=== PATIENT | female | born 1965 | race Caucasian/White ===

== ENCOUNTER → 2019-09-06 13:20 | Outpatient (BNVA) | payer MEDICAID, SELFPAY | PROVIDERS: Family Provider Family Medicine; PCP Family Medicine; Visit Provider Nurse Practitioner | DX: G89.4 Chronic pain syndrome (principal); M79.7 Fibromyalgia; M25.561 Pain in right knee; M25.562 Pain in left knee; G43.909 Migraine, unspecified, not intractable, without status migrainosus; F17.210 Nicotine dependence, cigarettes, uncomplicated; Z79.891 Long term (current) use of opiate analgesic | CPT/HCPCS: 99214 ==

== ENCOUNTER → 2019-09-22 10:35 | Outpatient (BNVA) | payer MEDICAID, SELFPAY | PROVIDERS: Family Provider Family Medicine; PCP Family Medicine; Visit Provider Nurse Practitioner Psychiatric/Mental Health | DX: F41.1 Generalized anxiety disorder (principal); F17.210 Nicotine dependence, cigarettes, uncomplicated; F31.13 Bipolar disorder, current episode manic without psychotic features, severe | CPT/HCPCS: 99213 ==

== ENCOUNTER → 2019-11-03 13:19 | Outpatient (BNVA) | payer MEDICAID, SELFPAY | PROVIDERS: Family Provider Family Medicine; PCP Family Medicine; Visit Provider Anesthesiology | DX: G89.4 Chronic pain syndrome (principal); M25.561 Pain in right knee; M25.562 Pain in left knee; M51.36 Other intervertebral disc degeneration, lumbar region; F17.210 Nicotine dependence, cigarettes, uncomplicated; Z79.891 Long term (current) use of opiate analgesic; Z71.6 Tobacco abuse counseling | CPT/HCPCS: 99214 ==

== ENCOUNTER → 2019-12-19 13:59 | Outpatient (BNVA) | payer MEDICAID, SELFPAY | PROVIDERS: Family Provider Family Medicine; PCP Family Medicine; Visit Provider Nurse Practitioner | DX: G89.4 Chronic pain syndrome (principal); M79.7 Fibromyalgia; M25.561 Pain in right knee; G43.909 Migraine, unspecified, not intractable, without status migrainosus; F17.210 Nicotine dependence, cigarettes, uncomplicated; Z79.891 Long term (current) use of opiate analgesic; Z71.6 Tobacco abuse counseling | CPT/HCPCS: 99213 ==

== ENCOUNTER → 2020-01-16 08:01 | Outpatient (BNVA) | payer MEDICAID, SELFPAY | PROVIDERS: Family Provider Family Medicine; PCP Family Medicine; Visit Provider Nurse Practitioner Psychiatric/Mental Health | DX: F31.13 Bipolar disorder, current episode manic without psychotic features, severe (principal); F41.1 Generalized anxiety disorder; F17.210 Nicotine dependence, cigarettes, uncomplicated | CPT/HCPCS: 99213 ==

== ENCOUNTER → 2020-02-14 12:47 | Outpatient (BNVA) | payer MEDICAID, SELFPAY | PROVIDERS: Family Provider Family Medicine; PCP Family Medicine; Visit Provider Nurse Practitioner | DX: G89.4 Chronic pain syndrome (principal); M79.7 Fibromyalgia; M25.561 Pain in right knee; M51.36 Other intervertebral disc degeneration, lumbar region; F17.210 Nicotine dependence, cigarettes, uncomplicated; Z79.891 Long term (current) use of opiate analgesic; Z71.6 Tobacco abuse counseling | CPT/HCPCS: 99213; 99214 ==

== ENCOUNTER → 2020-04-09 08:05 | Outpatient (BNVA) | payer MEDICAID, SELFPAY | PROVIDERS: Family Provider Family Medicine; PCP Family Medicine; Visit Provider Nurse Practitioner Psychiatric/Mental Health | DX: F31.13 Bipolar disorder, current episode manic without psychotic features, severe (principal); F41.1 Generalized anxiety disorder; F17.210 Nicotine dependence, cigarettes, uncomplicated | CPT/HCPCS: 99214 ==

== ENCOUNTER → 2020-05-07 07:48 | Outpatient (BNVA) | payer MEDICAID, SELFPAY | PROVIDERS: Family Provider Family Medicine; PCP Family Medicine; Visit Provider Nurse Practitioner Psychiatric/Mental Health | DX: F31.13 Bipolar disorder, current episode manic without psychotic features, severe (principal); F41.1 Generalized anxiety disorder; F17.210 Nicotine dependence, cigarettes, uncomplicated | CPT/HCPCS: 99213 ==

== ENCOUNTER → 2020-07-30 08:19 | Outpatient (BNVA) | payer MEDICAID, SELFPAY | PROVIDERS: Family Provider Family Medicine; PCP Family Medicine; Visit Provider Nurse Practitioner Psychiatric/Mental Health | DX: F31.13 Bipolar disorder, current episode manic without psychotic features, severe (principal); F41.1 Generalized anxiety disorder; F17.210 Nicotine dependence, cigarettes, uncomplicated | CPT/HCPCS: 99214 ==

== ENCOUNTER → 2020-09-10 08:27 | Outpatient (BNVA) | payer MEDICAID, SELFPAY | PROVIDERS: Family Provider Family Medicine; PCP Family Medicine; Visit Provider Nurse Practitioner Psychiatric/Mental Health | DX: F31.13 Bipolar disorder, current episode manic without psychotic features, severe (principal); F41.1 Generalized anxiety disorder; F17.210 Nicotine dependence, cigarettes, uncomplicated | CPT/HCPCS: 99214 ==

== ENCOUNTER → 2020-11-05 07:33 | Outpatient (BNVA) | payer MEDICAID, SELFPAY | PROVIDERS: Family Provider Family Medicine; PCP Family Medicine; Visit Provider Nurse Practitioner Psychiatric/Mental Health | DX: F31.13 Bipolar disorder, current episode manic without psychotic features, severe (principal); F41.1 Generalized anxiety disorder; F17.210 Nicotine dependence, cigarettes, uncomplicated | CPT/HCPCS: 99214 ==

== ENCOUNTER → 2021-01-23 07:35 | Outpatient (BNVA) | payer MEDICAID, SELFPAY | PROVIDERS: Family Provider Family Medicine; PCP Family Medicine; Visit Provider Nurse Practitioner Psychiatric/Mental Health | DX: F31.13 Bipolar disorder, current episode manic without psychotic features, severe (principal); F41.1 Generalized anxiety disorder; F17.210 Nicotine dependence, cigarettes, uncomplicated | CPT/HCPCS: 99214 ==

== ENCOUNTER → 2021-05-01 08:11 | Outpatient (BNVA) | payer MEDICAID, SELFPAY | PROVIDERS: Family Provider Family Medicine; PCP Family Medicine; Visit Provider Nurse Practitioner Psychiatric/Mental Health | DX: F31.13 Bipolar disorder, current episode manic without psychotic features, severe (principal); F41.1 Generalized anxiety disorder; F17.210 Nicotine dependence, cigarettes, uncomplicated | CPT/HCPCS: 99214 ==

== ENCOUNTER → 2021-05-08 11:11 | Outpatient (BNVA) | payer MEDICAID, SELFPAY | PROVIDERS: Family Provider Family Medicine; PCP Family Medicine; Visit Provider Nurse Practitioner Psychiatric/Mental Health | DX: Z79.899 Other long term (current) drug therapy (principal) | CPT/HCPCS: 80053 ==

== ENCOUNTER → 2021-07-24 08:17 | Outpatient (BNVA) | payer MEDICAID, SELFPAY | PROVIDERS: Family Provider Family Medicine; PCP Family Medicine; Visit Provider Nurse Practitioner Psychiatric/Mental Health | DX: F31.13 Bipolar disorder, current episode manic without psychotic features, severe (principal); F41.1 Generalized anxiety disorder; F17.210 Nicotine dependence, cigarettes, uncomplicated | CPT/HCPCS: 99214 ==

== ENCOUNTER → 2021-10-06 08:15 | Outpatient (BNVA) | payer MEDICAID, SELFPAY | PROVIDERS: Family Provider Family Medicine; PCP Family Medicine; Visit Provider Nurse Practitioner Psychiatric/Mental Health | DX: F41.1 Generalized anxiety disorder (principal); F17.210 Nicotine dependence, cigarettes, uncomplicated; F31.13 Bipolar disorder, current episode manic without psychotic features, severe; F90.9 Attention-deficit hyperactivity disorder, unspecified type; Z79.899 Other long term (current) drug therapy; Z03.89 Encounter for observation for other suspected diseases and conditions ruled out | CPT/HCPCS: 99214 ==

== ENCOUNTER → 2021-10-14 13:16 | Outpatient (BNVA) | payer MEDICAID, SELFPAY | PROVIDERS: Family Provider Family Medicine; PCP Family Medicine; Visit Provider Nurse Practitioner Psychiatric/Mental Health | DX: F31.13 Bipolar disorder, current episode manic without psychotic features, severe (principal); F41.1 Generalized anxiety disorder; F17.210 Nicotine dependence, cigarettes, uncomplicated; Z79.899 Other long term (current) drug therapy | CPT/HCPCS: 80053; 99214 ==

== ENCOUNTER → 2021-10-29 07:53 | Outpatient (BNVA) | payer MEDICAID, SELFPAY | PROVIDERS: Family Provider Family Medicine; PCP Family Medicine; Visit Provider Nurse Practitioner Psychiatric/Mental Health | DX: F31.13 Bipolar disorder, current episode manic without psychotic features, severe (principal); F41.1 Generalized anxiety disorder; F17.210 Nicotine dependence, cigarettes, uncomplicated | CPT/HCPCS: 99214 ==

== ENCOUNTER → 2021-12-22 07:02 | Outpatient (BNVA) | payer MEDICAID, SELFPAY | PROVIDERS: Family Provider Family Medicine; PCP Family Medicine; Visit Provider Nurse Practitioner Psychiatric/Mental Health | DX: F31.13 Bipolar disorder, current episode manic without psychotic features, severe (principal); F41.1 Generalized anxiety disorder; F17.210 Nicotine dependence, cigarettes, uncomplicated | CPT/HCPCS: 99214 ==

== ENCOUNTER → 2022-08-18 10:46 | Outpatient (BNVA) | payer MEDICAID, SELFPAY | PROVIDERS: Family Provider Family Medicine; PCP Family Medicine; Visit Provider Nurse Practitioner Psychiatric/Mental Health | DX: Z79.899 Other long term (current) drug therapy (principal); F31.13 Bipolar disorder, current episode manic without psychotic features, severe; F41.1 Generalized anxiety disorder; F17.210 Nicotine dependence, cigarettes, uncomplicated | CPT/HCPCS: 80053 ==

== ENCOUNTER 2023-05-11 10:44 | Outpatient (CLI) | payer MEDICAID, SELFPAY ==
--- NOTE | 2023-05-11 11:17 | MM_ITS ---
WS: [id number] BILATERAL 3D TOMOSYNTHESIS DIGITAL SCREENING MAMMOGRAPHY WITH CAD CLINICAL INFORMATION: Z12.39 - Encounter for other screening for malignant neop... HISTORY: Screening mammogram. No current complaints. COMPARISON: Baseline TECHNIQUE: Bilateral CC and MLO views. FINDINGS: Scattered fibroglandular densities bilaterally. No suspicious focal mass, asymmetry, calcifications, or architectural distortion. No evidence of malignancy. IMPRESSION: MM/[place] [id number] BI-RADS: 1-Negative FOLLOW UP: 1 Year Follow-up Recommend return to annual screening mammography.
== END 2023-05-11 10:45 | disposition home or self-care (01) ==
LOC: RAD 10:45
PROVIDERS: PCP Family Medicine; Visit Provider Family Medicine
DX: Z12.31 Encounter for screening mammogram for malignant neoplasm of breast (principal); Z79.899 Other long term (current) drug therapy
CPT/HCPCS: 77063; 77067; 80053; 80061; 82306; 83036; 85025

== ENCOUNTER → 2023-05-12 12:59 | Outpatient (BNVA) | payer MEDICAID, SELFPAY | PROVIDERS: PCP Family Medicine; Referring Provider Family Medicine; Visit Provider Surgery | DX: K59.00 Constipation, unspecified | CPT/HCPCS: 99203 ==

== ENCOUNTER 2023-05-19 05:54 | Day surgery (SDC) | payer MEDICAID, SELFPAY ==
[2023-05-19 06:13] VITALS: BP 139/104; PULSE 83; RESP 16; TEMP 36; O2SAT 98; BMI 32.8
[2023-05-19] MEDS: sodium chloride 0.9% 1,000 ML 30 ML IV (06:32)
--- NOTE | 2023-05-19 06:41 | P.ANESASSM_ITS ---
Pre-Anesthetic Assessment Height/Weight: Height 1.63 m Weight 86.636 kg Temp Pulse Resp BP Pulse Ox O2 Del Method 96.8 F L 83 16 139/104 98 Room Air 05/19/23 06:13 05/19/23 06:13 05/19/23 06:13 05/19/23 06:13 05/19/23 06:13 05/19/23 06:13 Preop Diagnosis: screening, constipation Operation Date: 05/19/23 07:00 Proposed Procedures p [id number] Colonoscopy G0121 Screen Colon A risk Z12.11(Not Applicable) - Kar Flores DO Familial anesthetic complications: none Was Beta Mikaela taken within 24 hours: N/A Was Clonidine taken within 24 hours: N/A Last intake: Intake Last Liquid Date 05/18/23 Last Liquid Time 21:00 Last Solid Date 05/17/23 Last Solid Time 17:00 Social No tobacco (quit 09/07) cannabis gummy 2 days prior, prn for sleep. Exam alert, oriented x 3 and clear to auscultation bilaterally Airway Submandibular: within normal limits Cervical ROM: within normal limits Mallampati: Class I Dentition: chipped Comments: Comments: very poor multiple missing and chipped Pulmonary None reported CV/HEM Hypertension None reported Hepatic None reported GI Gastroesophageal Reflux Disease Metabolic Hyperlipidemia and Morbid Obesity [facility] [place] Fibromyalgia and Lower Back Pain Neuropsych Anxiety, Bipolar and Depression Anesthetic Plan ASA status: 3 Anesthesia: MAC Medications/Allergies Home Medications Medication Instructions Recorded Confirmed Last Taken Type cyclobenzaprine 10 mg tablet 10 mg PO TID PRN muscle spasm #90 04/10/22 05/19/23 05/18/23 Rx tabs alprazolam 0.5 mg tablet (Xanax) 0.5 mg PO BID PRN anxiety #60 tabs 02/12/23 05/19/23 05/19/23 Rx losartan 100 mg tablet See Rx Instructions .Route 02/12/23 05/19/23 05/18/23 Rx .COMPLEX #90 tabs hydrocodone 5 mg-acetaminophen 325 1 - 2 tab PO BID PRN pain 1 month 05/03/23 05/19/23 05/18/23 Rx mg tablet #120 tabs fluticasone propionate 50 1 - 2 spray intranasal DAILY PRN 05/07/23 05/19/23 05/18/23 Rx mcg/actuation nasal allergy symptoms #16 grams spray,suspension amlodipine 10 mg tablet See Rx Instructions .Route 05/10/23 05/19/23 05/18/23 Rx .COMPLEX #30 tabs loratadine 10 mg tablet See Rx Instructions .Route 05/10/23 05/19/23 05/18/23 Rx .COMPLEX #90 tabs lurasidone 20 mg tablet (Latuda) 20 mg PO .5 pm #30 tabs 05/11/23 05/17/23 Unknown Rx oxcarbazepine 600 mg tablet 600 mg PO BID #60 tabs 05/11/23 05/17/23 05/17/23 Rx (Trileptal) trazodone 100 mg tablet 100 mg PO DIRECTED PRN insomnia 05/11/23 05/12/23 3 Days Ago Rx #60 tabs ~05/16/23 Allergies Allergy/AdvReac Type Severity Reaction Status Date / Time cefuroxime [From Ceftin] Allergy diarrhea Verified 05/12/23 13:03 tramadol Allergy nausea Verified 05/12/23 13:03 Current Medications Generic Name Dose Route Start Last Admin Trade Name Freq PRN Reason Stop Dose Admin Sodium Chloride 1,000 mls @ 30 mls/hr 05/19/23 06:15 05/19/23 06:32 Sodium Chloride 0.9% IV 05/20/23 06:14 30 mls/hr .Q24H AMBER Administration PFSH Anesthesia Medical History Bilateral knee pain Bipolar I disorder, most recent episode mixed, severe without psychotic features Chronic pain disorder Degenerative lumbar disc Encounter for long-term opiate analgesic use Fibromyalgia Former smoker last nicotine use 08/19/22 Generalized anxiety disorder senior care (current) use of non-steroidal anti-inflammatories (nsaid) Opiate analgesic contract exists Psychiatric care Smoker Surgical History Hx of cataract extraction 2019 Hx of tubal ligation Family History Unknown Heart disease Diabetes Cancer breast, prostate Psychiatric illness Social History Smoking and tobacco status: current every day smoker cigarettes [ Other cigarette details: 1 ppd] Alcohol intake: unknown Substance/Drug Use: unknown Adopted: No Household members: spouse Housing: House Marital status: Number of children: 2 Highest education level completed: Some College, No Degree service: No Current occupational status: disabled Pets and animals: Yes Current gender identity: Female Data Anesthesia Cardiac Studies: No Data to Display
--- NOTE | 2023-05-19 06:56 | W.PM.OPSUD ---
Surgery/Procedure H&P Update DATE OF PROCEDURE: May 19, 2023 DATE H&P PERFORMED: 05/12/23 H&P UPDATE INFORMATION: I have reviewed H&P completed within last 30 days, I have examined patient prior to procedure and No changes to prior documentation PREOP DIAGNOSIS: screening, constipation PLANNED PROCEDURE: Operation Date: 05/19/23 07:00 Proposed Procedures p [id number] Colonoscopy G0121 Screen Colon A risk Z12.11(Not Applicable) - Kar Flores, DO
[2023-05-19 07:18] VITALS: BP 127/98; PULSE 96; RESP 16; TEMP 36.5; O2SAT 96
[2023-05-19 07:23] VITALS: BP 125/73; PULSE 89; RESP 18; O2SAT 97
[2023-05-19 07:33] VITALS: BP 138/96; PULSE 95; RESP 18; O2SAT 100
--- NOTE | 2023-05-19 07:45 | ANE.PACU2 ---
Inpatient post-anesthesia follow up: Airway intact: Yes Vital signs: Temperature 97.7 F Pulse Rate 95 Respiratory Rate 18 Blood Pressure 138/96 Pulse Oximetry 100 Oxygen Delivery Me thod Room Air Oxygen Flow Rate Fraction of Inspir ed Oxygen Hydration adequate: Yes Nausea and vomiting: No Pain level: 1 Mental status: Baseline
== END 2023-05-19 07:50 | disposition home or self-care (01) ==
PROVIDERS: PCP Family Medicine; Visit Provider Surgery
PROC: 0DJD8ZZ Inspection of Lower Intestinal Tract, Via Natural or Artificial Opening Endoscopic (ICD-10-PCS; CPT 45378; principal; 2023-05-19 07:00)
DX: Z12.11 Encounter for screening for malignant neoplasm of colon (principal); K57.30 Diverticulosis of large intestine without perforation or abscess without bleeding; I10 Essential (primary) hypertension; K21.9 Gastro-esophageal reflux disease without esophagitis; E78.5 Hyperlipidemia, unspecified; E66.01 Morbid (severe) obesity due to excess calories; Z68.32 Body mass index [BMI] 32.0-32.9, adult; M79.7 Fibromyalgia; F17.210 Nicotine dependence, cigarettes, uncomplicated
CPT/HCPCS: 45378; J2704; J7030

== ENCOUNTER → 2023-05-27 09:25 | Outpatient (BNVA) | payer MEDICAID, SELFPAY | PROVIDERS: PCP Family Medicine; Visit Provider Nurse Practitioner Women's Health | DX: N95.1 Menopausal and female climacteric states (principal); Z01.419 Encounter for gynecological examination (general) (routine) without abnormal findings | CPT/HCPCS: 82670; 83001; 84443; 87624 ==

== ENCOUNTER 2023-08-25 10:27 | Outpatient (CLI) | payer MEDICAID, SELFPAY ==
--- NOTE | 2023-08-25 11:00 | MR_ITS ---
WS: [id number] MRI LUMBAR SPINE NONCONTRAST HISTORY: acute on chronic lumbar radiculopathy/deficit COMPARISON: 07/01/2010 TECHNIQUE: Sagittal and axial multisequence imaging is submitted. Normal lumbar alignment with no compression fractures or marrow edema. Mild disc space narrowing and desiccation at L4-5. Chronic fat replacement along the endplates of L4 and L5. Conus terminates normally at L1-2 disc level. L1-L2: Small central disc osteophyte complex on the ventral thecal sac. New since the prior study. No high-grade stenosis. There is mild encroachment upon the subarticular recesses and traversing L2 ner ve roots. L2-L3: Mild annular disc bulging with a shallow central disc protrusion. Mild facet arthritis. Very m ild central and bilateral subarticular recess encroachment. Mild encroachment upon the traversing L3 nerve roots. L3-L4: Diffuse annular disc bulging with osteophytic ridging encroaching upon the ventral thecal sac. Moderate ligamentum flavum and facet arthritis. Mild central and bilateral subarticular recess steno sis. L4-L5: Mild annular disc bulging effacing the ventral CSF. Disc encroaches into the subarticular rece sses and contacts the traversing L5 nerve roots. Mild osteophytic ridging. Disc and osteophyte extend into the foramina bilaterally. Mild central with moderate bilateral subarticular recess and proximal foraminal stenosis. Most significant encroachment upon the traversing L5 nerve roots. L5-S1: Mild bilateral facet arthritis. No paravertebral abnormality. Benign follicle RIGHT ovary. IMPRESSION: 1. Progression of degenerative disc disease and subarticular recess encroachment since 2009 at multi ple levels. 2. L1-2: Small central disc osteophyte complex is new. Mild subarticular recess encroachment. 3. L2-3: Mild encroachment upon the traversing L3 nerve roots. 4. L3-4: Mild central and bilateral subarticular recess stenosis. 5. L4-5: Mild central with moderate bilateral subarticular recess and proximal foraminal stenosis. M ore significant encroachment upon the traversing L5 nerve roots.
== END 2023-08-25 10:28 | disposition home or self-care (01) ==
LOC: RAD 10:28
PROVIDERS: PCP Family Medicine; Visit Provider Family Medicine
DX: M54.16 Radiculopathy, lumbar region (principal); M54.30 Sciatica, unspecified side
CPT/HCPCS: 72148

== ENCOUNTER → 2023-09-16 11:23 | Outpatient (BNVA) | payer MEDICAID, SELFPAY | PROVIDERS: PCP Family Medicine; Visit Provider Orthopaedic Surgery | DX: M48.062 Spinal stenosis, lumbar region with neurogenic claudication (principal) | CPT/HCPCS: 72110; 99204 ==

== ENCOUNTER → 2024-06-13 11:50 | Outpatient (BNVA) | payer MEDICAID, SELFPAY | PROVIDERS: PCP Family Medicine; Visit Provider Family Medicine | DX: I10 Essential (primary) hypertension (principal); M79.7 Fibromyalgia; G89.4 Chronic pain syndrome; F41.1 Generalized anxiety disorder; M51.16 Intervertebral disc disorders with radiculopathy, lumbar region | CPT/HCPCS: 80053; 80061; 85025 ==

== ENCOUNTER 2024-07-04 15:45 | Outpatient (CLI) | payer MEDICAID, SELFPAY ==
--- NOTE | 2024-07-04 16:45 | MR_ITS ---
WS: [id number] MRI LUMBAR SPINE NONCONTRAST HISTORY: Chronic low back pain, bilateral lower extremity pain and numbness. COMPARISON: 08/25/2023 TECHNIQUE: Sagittal and axial multisequence imaging is submitted. Increase in the upper thoracic kyphosis. Degenerative cervical and thoracic scoliosis. Posterior lumbar alignment is normal. Disc spaces are narrowed and desiccated. Most significant degen erative changes are at L4-5. No acute fracture or marrow edema. Conus terminates normally at L1-2 disc level. L1-L2: Small central to LEFT paracentral disc protrusion with slight increase in size. Greater deviat ion to the LEFT of the disc protrusion encroaching and narrowing the LEFT subarticular recess. Very m ild narrowing of the RIGHT subarticular recess. Ligamentum flavum and facet arthritis. Mild central s tenosis. L2-L3: Mild annular disc bulging with facet and ligamentum flavum hypertrophy. Central disc protrusio n has decreased. Mild subarticular recess encroachment remains. Disc encroaches upon the traversing L 3 nerve roots. L3-L4: Mild annular disc bulging with a central disc protrusion which is slightly increased in size. Encroachment and deformity of the central thecal sac and subarticular recesses, LEFT greater than RIG HT. Moderate central with mild bilateral subarticular recess and foraminal stenosis. L4-L5: Mild diffuse annular disc bulging with mild osteophytic ridging. Effacement of ventral CSF. Di sc extends into the subarticular recesses contacting the L5 nerve roots. Mild central with moderate b ilateral subarticular recess and mild foraminal stenosis. Similar to the prior study with no progress ion. L5-S1: Mild disc bulging. Facet and ligamentum flavum arthritis. Paravertebral soft tissues are unchanged. MR/MR lumbar spine wo con* [id number] IMPRESSION: 1. No acute fracture. 2. Degenerative disc disease throughout the lumbar spine but most significant at L4-5. 3. L1-2: Small central to LEFT paracentral disc protrusion slightly increased in size since the prior exam. Greater encroachment upon the LEFT subarticular r ecess and LEFT L2 traversing nerve root. Additional mild central and RIGHT suba rticular recess encroachment. 4. L2-3: Mild subarticular recess encroachment upon the traversing L3 nerve ro ots. 5. L3-4: Central disc protrusion is slightly increased in size. Moderate centr al with mild bilateral subarticular recess and foraminal stenosis. 6. L4-5: Mild central with moderate bilateral subarticular recess and mild for aminal stenosis. Similar to the prior study.
== END 2024-07-04 15:46 | disposition home or self-care (01) ==
LOC: RAD 15:47
PROVIDERS: PCP Family Medicine; Visit Provider Family Medicine
DX: M54.16 Radiculopathy, lumbar region (principal); M41.34 Thoracogenic scoliosis, thoracic region; M41.82 Other forms of scoliosis, cervical region; M51.26 Other intervertebral disc displacement, lumbar region; M99.61 Osseous and subluxation stenosis of intervertebral foramina of cervical region
CPT/HCPCS: 72148

== ENCOUNTER → 2024-08-29 13:19 | Outpatient (BNVA) | payer MEDICAID, SELFPAY | PROVIDERS: PCP Family Medicine; Referring Provider Family Medicine; Visit Provider Orthopaedic Surgery | DX: M54.9 Dorsalgia, unspecified (principal); M48.062 Spinal stenosis, lumbar region with neurogenic claudication | CPT/HCPCS: 99214 ==

== ENCOUNTER → 2024-09-08 16:11 | Outpatient (BNVA) | payer MEDICAID, SELFPAY | PROVIDERS: PCP Family Medicine; Visit Provider Nurse Practitioner Women's Health | DX: Z01.419 Encounter for gynecological examination (general) (routine) without abnormal findings (principal) | CPT/HCPCS: 87624 ==

== ENCOUNTER → 2024-11-02 12:05 | Outpatient (BNVA) | payer MEDICAID, SELFPAY | PROVIDERS: PCP Family Medicine; Visit Provider Nurse Practitioner Women's Health | DX: E55.9 Vitamin D deficiency, unspecified (principal); N95.1 Menopausal and female climacteric states | CPT/HCPCS: 82306; 82670 ==

== ENCOUNTER → 2025-03-12 11:47 | Outpatient (BNVA) | payer MEDICAID, SELFPAY | PROVIDERS: PCP Family Medicine; Visit Provider Family Medicine | DX: I10 Essential (primary) hypertension (principal); F41.1 Generalized anxiety disorder; E55.9 Vitamin D deficiency, unspecified; M79.7 Fibromyalgia; M54.16 Radiculopathy, lumbar region; M51.369 Other intervertebral disc degeneration, lumbar region without mention of lumbar back pain or lower extremity pain | CPT/HCPCS: 80053; 80061; 82306; 85025 ==

== ENCOUNTER 2025-04-30 08:42 | Emergency (ER) | payer MEDICAID, SELFPAY ==
[2025-04-30] VITALS (7 sets, daily range): BP systolic 138–179; BP diastolic 83–106; PULSE 79–98; RESP 16; TEMP 36.9; O2SAT 98–99; BMI 27.8
--- NOTE | 2025-04-30 09:58 | XR_ITS ---
WS: [id number] XR chest 1V portable [id number] REASON FOR EXAM: dyspnea/cough FINDINGS: Mild tortuosity and ectasia of the thoracic aorta. Heart is at the upper limits of normal in size. Minimal calcified granulomatous disease bilaterally. No acute pulmonary parenchymal or pleural abnormality. Mild dextroscoliosis of the thoracic spine. XR/XR chest 1V portable [id number] IMPRESSION: No acute chest abnormality.
--- NOTE | 2025-04-30 09:59 | ECG_ITS ---
[facility]: 2025-[facility]30 Pat Name: Barbi Quinteros Department: Room: Gender: Female Emt B: : 1965 Requested By: Bobby Castro Order Number: [id number] Trisha MD: Audelia Florence M.D. Measurements Intervals [place] Rate: 84 P: 63 VT: 192 QRS: 33 QRSD: 81 T: 52 QT: 334 QTc: 395 Interpretive Statements SINUS RHYTHM POSSIBLE RIGHT VENTRICULAR CONDUCTION DELAY [RSR (QR) IN V1/V2] No previous ECG available for comparison Electronically Signed On 05-01-2025 08:01:31 CDT by Audelia Florence M.D. [email or web address]
--- NOTE | 2025-04-30 10:16 | ED_ITS ---
HPI - Syncope 2 General: Chief Complaint: Syncope Stated Complaint: near syncope Time Seen by Provider: 04/30/25 09:30 History of Present Illness: 59-year-old female presents to the emerg ency room with complaint of near syncopal episode. She got lightheaded and dizzy few times last night this morning she got up she initially felt fine she had a cup of coffee and then she got up for a second cup of coffee she felt a little off checked her blood pressure will 123/60 she thought that was low for her she said she did not had some salt and had a second cup of coffee got lightheaded and dizzy felt like she was nearly get a pass out she ended up sitting down and she never actually fell or actually passed out. She did lower herself to the floor called the EMS. She states she is feeling fine now she denies any abdominal or chest pain during any of this. Associated symptoms: Deny abdominal pain, chest pain or fever(s) Related Data Previous Rx's ?Medication ?Instructions ?Recorded loratadine 10 mg tablet See Rx Instructions .Route 1 .COMPLEX #90 tabs ondansetron HCl 4 mg tablet 4 mg PO Q8H PRN nausea and 08/24/24 vomiting #20 tabs estradiol 0.0375 mg/24 hr 1 patch transdermal .twice w eekly 11/02/24 semiweekly transdermal patch #24 ea progesterone micronized 200 mg 200 mg PO .bedtime #90 caps 11/02/24 capsule (Prometrium) amlodipine 10 mg tablet See Rx Instructions .Route 0 12/06/24 Held on 01/02/25. .COMPLEX #90 tabs Instructions: Home Medication placed on hold at Doctor's office fluticasone propionate 50 1 - 2 spray intranasal DAILY PRN 01/09/25 mcg/actuation nasal allergy symptoms #16 grams spray,suspension losartan 100 mg tablet See Rx Instructions .Route 0 02/13/25 .COMPLEX #90 tabs cholecalciferol (vitamin D3) 1,250 50,000 unit PO .sheree kly #8 tabs 03/12/25 mcg (50,000 unit) tablet loratadine 10 mg tablet (Claritin) 10 mg PO DAILY austyn rgies #90 tabs 03/12/25 alprazolam 0.5 mg tablet (Xanax) 0.5 mg PO BID PRN anx iety #60 tabs 04/25/25 bupropion HCl 150 mg 24 hr tablet, 150 mg PO QAM #30 t abs 04/25/25 extended release (Wellbutrin XL) oxcarbazepine 600 mg tablet 600 mg PO TID #90 tabs 06/09 (Trileptal) quetiapine 25 mg tablet (Seroquel) 25 mg PO .8 pm PRN anxiety/sleep 04/25/25 #30 tabs oxycodone 10 mg tablet 10 mg PO Q4H PRN pain 14 day s #84 04/26/25 tabs Allergies Allergy/AdvReac Type Severity Reaction Status Date / Time cefuroxime (From Ceftin) Allergy diarrhea Verified 04/25/25 13:14 tramadol Allergy nausea Verified 04/25/25 13:14 Review of Systems 2 Const: Denies: fever(s) or chills Card: Denies: chest pain Resp: Denies: dyspnea GI: Denies: abdominal pain : Denies: dysuria, urinary frequency or urinary urgency Musc: Denies: neck pain or back pain Skin/Breast: Denies: rash PFSH ED 2 PFSH: Medical History No pertinent past medical history neghx: dm,thyroid,dvt/pe PCP: Dr. Valencia Former smoker last nicotine use 08/19/22 Bipolar I disorder, most recent episode mixed, severe without psychotic features Psychiatric care [facility] (current) use of non-steroidal anti-inflammatories (nsaid) Opiate analgesic contract exists Generalized anxiety disorder Bilateral knee pain Degenerative lumbar disc Chronic pain disorder Encounter for long-term opiate analgesic use Fibromyalgia Smoker Surgical History History of appendectomy Hx of tubal ligation Hx of cataract extraction 2019 Family History Unknown Heart disease Diabetes Cancer breast, prostate Psychiatric illness Father Prostate cancer Social History Smoking and tobacco/nicotine status: former use of tobacco/nicotine Adopted: No Physical Exam 2 Const: COMMON NORMALS: no acute distress GENERAL APPEARANCE: cooperative and comfortable ORIENTATION/CONSCIOUSNESS: Yes awake, Yes oriented to person, Yes oriented to place and Yes oriented to time HENMT: COMMON NORMALS: normocephalic, atraumatic and hearing grossly normal bilaterally HEAD & SCALP: normocephalic and atraumatic Resp: COMMON NORMALS: normal respiratory effort, No retractions, No use of accessory muscles and clear to auscultation bilaterally AUSCULTATION: clear to auscultation bilaterally Cardio: COMMON NORMALS: regular rate, regular rhythm and No murmurs present (Cardio) RATE: regular rate RHYTHM: regular rhythm GI: COMMON NORMALS: Soft to palpation and No hepatosplenomegaly present A USCULTATION: Yes normoactive bowel sounds PALPATION: Yes Soft to palpation, No Tenderness to palpation present (GI), No Guarding due to palpation present (GI) and Yes No hepatosplenomegaly present Extremity: COMMON NORMALS: normal to inspection, capillary refill normal, no clubbing, cyanosis or edema, no calf tenderness and no pedal edema Neuro: SENSORIUM/ORIENTATION: Yes oriented to person, Yes oriented to place and Yes oriented to time Skin: COMMON NORMALS: no rashes or lesions noted GENERAL SKIN EXAM: no rashes or lesions noted Course 2 Vital Signs: Vital signs: Vital Signs Temperature 98.4 F 04/30/25 08:47 Pulse Rate 90 04/30/25 12:57 Respiratory Rate 16 04/30/25 08:47 Blood Pressure 156/92 04/30/25 12:57 Pulse Oximetry 99 04/30/25 12:57 Oxygen Delivery Me thod Room Air 04/30/25 08:47 MDM - Syncope Medical Decision Making Patient had episode of lightheadedness dizziness near syncope after standing up suspect she had a transient hypotension she has not had any further symptoms or arrhythmias here for all evaluation has been negative will discharge patient home and have her follow-up with primary care. Medical Records I reviewed the patient's medical records. Lab Data I reviewed the patient's lab results. 04/30/25 11:13 04/30/25 10:15 Radiology Impressions Chest X-Ray 04/30/25 09:58 IMPRESSION: No acute chest abnormality. Laboratory Results WBC 7.58 10^3/uL (3.29-11.43) 04/30/25 11:13 Corrected WBC Cancelled 04/30/25 10:15 RBC 3.65 10^6/uL (3.85-5.65) L 04/30/25 11:13 Hgb 12.20 g/dL (11.27-16.99) 04/30/25 11:13 Hct 34.3 % (36-47) L 04/30/25 11:13 MCV 94.0 fl (85-98) 04/30/25 11:13 MCH 33.4 pg (27-33) H 04/30/25 11:13 MCHC 35.6 g/dL (30-55) 04/30/25 11:13 RDW 13.1 % (12.1-15.1) 04/30/25 11:13 Plt Count 288 10^3/cmm (157-399) 04/30/25 11:13 MPV 8.0 fL (7.4-10.4) 04/30/25 11:13 Gran % Cancelled 04/30/25 10:15 Neut % (Auto) 87.3 % 04/30/25 11:13 Lymph % (Auto) 7.9 % 04/30/25 11:13 [place] % (Auto) 3.6 % 04/30/25 11:13 Eos % (Auto) 0.3 % 04/30/25 11:13 Baso % (Auto) 0.5 % 04/30/25 11:13 Neut # (Auto) 6.62 10^3/uL (1.8-7.7) 04/30/25 11:13 Lymph # (Auto) 0.6 10^3/uL (0.8-4.8) L 04/30/25 11:13 [place] # (Auto) 0.3 10^3/uL (0.2-0.9) 04/30/25 11:13 Eos # (Auto) 0.0 10^3/uL (0.0-0.8) 04/30/25 11:13 Baso # (Auto) 0.0 10^3/uL (0.0-0.1) 04/30/25 11:13 Absolute Gran (auto) Cancelled 04/30/25 10:15 Nucleated RBC % (auto) 0 % 04/30/25 11:13 Nucleated RBCs # 0.0 /100WBC 04/30/25 11:13 Sodium 128 mmol/L (136-145) L 04/30/25 10:15 Potassium 4.2 mmol/L (3.5-5.1) 04/30/25 10:15 Chloride 95 mmol/L (98-107) L 04/30/25 10:15 Carbon Dioxide 21 mmol/L (22-29) L 04/30/25 10:15 Anion Gap 16.2 (5-19) 04/30/25 10:15 BUN 8 mg/dL (6-20) 04/30/25 10:15 Creatinine 0.6 mg/dL (0.5-0.9) 04/30/25 10:15 GFR Calculation 103.0 mL/min (90-130) 04/30/25 10:15 Glucose 108 mg/dL (65-115) 04/30/25 10:15 Calculated Osmolality 265 mOsm/kg (285-295) L 04/30/25 10:15 Calcium 9.0 mg/dL (8.5-10.5) 04/30/25 10:15 Magnesium 1.9 mg/dL (1.7-2.3) 04/30/25 10:15 Total Bilirubin 0.4 mg/dL (0.15-1.2) 04/30/25 10:15 AST 12 U/L (0-32) 04/30/25 10:15 ALT 8 U/L (0-33) 04/30/25 10:15 Alkaline Phosphatase 71 U/L (35-105) 04/30/25 10:15 Troponin T Baseline 7 ng/L (0-10) 04/30/25 10:15 Total Protein 7.0 g/dL (6.6-8.7) 04/30/25 10:15 Albumin 4.6 g/dL (3.5-5.2) 04/30/25 10:15 Globulin 2.4 g/dL (1.3-4.6) 04/30/25 10:15 Urine Color Yellow (Yellow) 04/30/25 10:25 Urine Appearance Clear (CLEAR) 04/30/25 10:25 Urine pH 5.5 (5-7) 04/30/25 10:25 Ur Specific [place] 1.024 (1.005-1.030) 04/30/25 10:25 Urine Protein Negative (Negative) 04/30/25 10:25 Urine Glucose (UA) Negative (Normal) 04/30/25 10:25 Urine Ketones Negative (Negative) 04/30/25 10:25 Urine Blood Negative (Negative) 04/30/25 10:25 Urine Nitrate Negative (Negative) 04/30/25 10:25 Urine Bilirubin Negative (Negative) 04/30/25 10:25 Urine Urobilinogen 1.0 mg/dL (Negative) 04/30/25 10:25 Ur Leukocyte Esterase Negative (Negative) 04/30/25 10:25 Urine RBC 0-2 /hpf (0-2) 04/30/25 10:25 Urine WBC 0-5 /hpf (0-5) 04/30/25 10:25 Ur Squamous Epith Cells 0-5 /hpf (0-5) 04/30/25 10:25 Amorphous Sediment Not Reportable 04/30/25 10:25 Urine Bacteria 2+ /hpf (NONE) H 04/30/25 10:25 Hyaline Casts 0.81 /lpf 04/30/25 10:25 All radiology interpretation(s) finalized by discharge EKG Data EKG 1: Interpretation: EKG 915 2025-05-23 normal sinus rhythm pulse 84 FL interval 192 QTc [address] changes noted no T wave inversion. No EKG available for comparison EKG 2: Interpretation: EKG 915 2025-07-03 normal sinus rhythm rate of 78 FL interval [address] elevation T wave inversion or abnormality compared to EKG done earlier today unchanged Discharge Plan Discharge Patient Disposition: Home Clinical Impression: Near syncope, Hypertension, Hyponatremia Condition: Stable Prescriptions: No Action loratadine 10 mg tablet See Rx Instructions .ROUTE .COMPLEX Qty: 90 3RF Dose Instruction: TAKE ONE TABLET BY MOUTH EVERY DAY FOR ALLERGIES Rx Instructions: TAKE ONE TABLET BY MOUTH EVERY DAY FOR ALLERGIES ondansetron HCl 4 mg tablet 4 mg PO Q8H PRN (Reason: nausea and vomiting) Qty: 20 0RF oxcarbazepine [Trileptal] 600 mg tablet 600 mg PO TID Qty: 90 4RF Rx Instructions: Take one tablet three times per day quetiapine [Seroquel] 25 mg tablet 25 mg PO .8 pm PRN (Reason: anxiety/sleep) Qty: 30 3RF Rx Instructions: may take one tablet at 8 pm bupropion HCl [Wellbutrin XL] 150 mg tablet extended release 24 hr 150 mg PO QAM Qty: 30 6RF Rx Instructions: Take one tablet every morning alprazolam [Xanax] 0.5 mg tablet 0.5 mg PO BID PRN (Reason: anxiety) Qty: 60 3RF Rx Instructions: Take one tablet twice per day as needed for anxiety progesterone micronized [Prometrium] 200 mg capsule 200 mg PO .bedtime Qty: 90 3RF estradiol 0.0375 mg/24 hr patch semiweekly 1 patch transdermal .twice weekly Qty: 24 3RF Rx Instructions: take in conjunction with prometrium loratadine [Claritin] 10 mg tablet 10 mg PO DAILY Qty: 90 3RF cholecalciferol (vitamin D3) 1,250 mcg (50,000 unit) tablet 50,000 unit PO .weekly Qty: 8 5RF amlodipine 10 mg tablet See Rx Instructions .ROUTE .COMPLEX Qty: 90 3RF Dose Instruction: TAKE ONE TABLET BY MOUTH DAILY Rx Instructions: TAKE ONE TABLET BY MOUTH DAILY fluticasone propionate 50 mcg/actuation spray,suspension 1 - 2 spray intranasal DAILY PRN (Reason: allergy symptoms) Qty: 16 3RF Rx Instructions: administer into each nostril losartan 100 mg tablet See Rx Instructions .ROUTE .COMPLEX Qty: 90 3RF Dose Instruction: TAKE ONE TABLET BY MOUTH DAILY FOR BLOOD PRESSURE Rx Instructions: TAKE ONE TABLET BY MOUTH DAILY FOR BLOOD PRESSURE oxycodone 10 mg tablet 10 mg PO Q4H PRN (Reason: pain) 14 Days Qty: 84 0RF Discharge Orders: Discharge ED (Routine); Ordered 04/30/25 Ordered By: Bobby Sanches Referrals: Sal Valencia DO [Primary Care Provider, Family Practice] Discharge Diet: Usual diet Discharge Activity: Increase activity as tolerated Patient Instructions: Opioid Safety, Pain Management, Patient Portal & Sean Instructions Activity Restrictions/Additional Instructions: Thank you for choosing [facility] for your healthcare needs today. It is very important that you follow up as instructed or that you return to the Emergency Department should you have concerns or if your condition changes or worsens in any way. Emergency department visits are focused on emergent conditions, in some cases you may require further evaluation on an outpatient basis. You were seen in the emergency room after a near syncopal episode your laboratory test showed very slightly low sodium level but otherwise were unremarkable. You were given your morning blood pressure medications. Your blood pressure is stable. Your orthostatic vital signs (blood pressures and pulses once laying sitting and standing). Continue current medications follow- up with your primary care doctor within a week. (Please note that included in your discharge packet is information concerning opioid safety and pain management. 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
[2025-04-30 10:40] LABS: Glucose Urine UA Negative (Normal); Nitrate Urine Negative (Negative); Specific Gravity, Urine 1.024 (1.005-1.030)
[2025-04-30 10:45] LABS: Add Urine Microscopic? YES
[2025-04-30 10:54] LABS: Alanine Aminotransferase 8 U/L (0-33); Albumin Level 4.6 g/dL (3.5-5.2); Alkaline Phosphatase 71 U/L (35-105); Aspartate Amino Transferase 12 U/L (0-32); Blood Urea Nitrogen 8 mg/dL (6-20); Calcium 9.0 mg/dL (8.5-10.5); Carbon Dioxide 21 mmol/L (22-29); Chloride 95 mmol/L (98-107); Creatinine Clr Calc Pharmacy 101.5998; Globulin 2.4 g/dL (1.3-4.6); Glucose 108 mg/dL (65-115); Magnesium 1.9 mg/dL (1.7-2.3); Osmolality Calculated 265 mOsm/kg (285-295); Sodium 128 mmol/L (136-145); Total Protein 7.0 g/dL (6.6-8.7)
[2025-04-30 10:56] LABS: Troponin(5th) Baseline 7 ng/L (0-10)
[2025-04-30 11:00] LABS: Anion Gap 16.2 (5-19); Potassium 4.2 mmol/L (3.5-5.1)
[2025-04-30 11:21] LABS: Hematocrit 34.3 % (36-47); Hemoglobin 12.20 g/dL (11.27-16.99); Mean Corpuscular HGB Conc 35.6 g/dL (30-55); Mean Corpuscular Hemoglobin 33.4 pg (27-33); Mean Corpuscular Volume 94.0 fl (85-98); Nucleated Red Blood Cells % 0 %; Platelet Count 288 10^3/cmm (157-399); Red Blood Count 3.65 10^6/uL (3.85-5.65); White Blood Count 7.58 10^3/uL (3.29-11.43)
--- NOTE | 2025-04-30 11:59 | ECG_ITS ---
[facility] Test Date: 2025-04-30 Pat Name: Barbi Quinteros Department: Room: Gender: Female Computer System Specialist: : [id number] Requested By: Bobby Castro Order Number: [id number] Trisha MD: Audelia Florence M.D. Measurements Intervals [place]raw Rate: 78 P: 68 NH: 200 QRS: 27 QRSD: 82 T: 50 QT: 349 QTc: 400 Interpretive Statements SINUS RHYTHM Compared to ECG 04/30/2025 10:08:40 No significant changes Electronically Signed On 05-02-2025 23:40:59 CDT by Audelia Florence M.D. [email or web address]
[2025-04-30 13:28] LABS: Troponin 5 2HR < 6.0 ng/L (0-10); Troponin 5 2HR Delta -1.00001 ABS# (0-10)
== END 2025-04-30 14:04 | disposition home or self-care (01) ==
PROVIDERS: Emergency Provider Family Medicine; PCP Family Medicine
DX: R55 Syncope and collapse (principal); I10 Essential (primary) hypertension; E87.1 Hypo-osmolality and hyponatremia; Z87.891 Personal history of nicotine dependence
CPT/HCPCS: 36415; 71045; 80053; 81001; 83735; 84484; 85025; 93005; 96360; 99285; J7030; J9999

== ENCOUNTER → 2025-05-08 08:57 | Outpatient (BNVA) | payer MEDICAID, SELFPAY | PROVIDERS: PCP Family Medicine; Visit Provider Family Medicine | DX: E87.1 Hypo-osmolality and hyponatremia (principal) | CPT/HCPCS: 80048 ==

== ENCOUNTER → 2025-05-22 12:58 | Outpatient (BNVA) | payer MEDICAID, SELFPAY | PROVIDERS: PCP Family Medicine; Visit Provider Family Medicine | DX: I10 Essential (primary) hypertension (principal) | CPT/HCPCS: 80048 ==

== ENCOUNTER → 2025-06-19 10:26 | Outpatient (BNVA) | payer MEDICAID, SELFPAY | PROVIDERS: PCP Family Medicine; Visit Provider Family Medicine | DX: E87.1 Hypo-osmolality and hyponatremia (principal) | CPT/HCPCS: 80048 ==